=== PATIENT | female | born 2000 | race Caucasian/White ===

== ENCOUNTER 2018-02-06 14:42 | Emergency (ER) | payer OTHER ==
[2018-02-06] MEDS ORDERED: LIDOCAINE 1% (MDV) 10 ML INJ INFIL (15:35)
[2018-02-06] MEDS: CEFAZOLIN 1 GM INJ IM (15:42)
[2018-02-06] MEDS: LIDOCAINE 1% (MDV) 20 ML INJ SC (15:42)
[2018-02-06] MEDS: DIPHTH/TET/ACEL PERTUSS (ADULT) 0.5 ML VIAL IM* (15:43)
[2018-02-06] MEDS ORDERED: HYDROCODONE/APAP (5/325) TAB PO (16:00)
[2018-02-06] MEDS: ACETAMINOPHEN 325 MG TAB PO (16:06)
== END 2018-02-06 17:06 | disposition home or self-care (01) ==
LOC: FTE 14:42
DX: S71.152A Open bite, left thigh, initial encounter (principal); W54.0XXA Bitten by dog, initial encounter; Y92.9 Unspecified place or not applicable; Z23 Encounter for immunization
CPT/HCPCS: 90471; 90715; 96372; 99284-25